=== PATIENT | female | born 1945 | race Two or more races ===

== ENCOUNTER 2025-06-26 20:51 | Inpatient (IN) | payer MEDICARE, OTHER ==
[~2025-06-26] VITALS: Ht 162.6 cm; Wt 48.0 kg
[2025-06-26] MEDS: SODIUM CHLORIDE 0.9% 1,000 ML IV ONE (21:33)
[2025-06-26] MEDS: cefTRIAXone 1GM/50ML D5W 50 ML IV ONE (21:33)
--- NOTE | 2025-06-26 21:48 | ED.PDOC ---
General HPI Comments HPI: 80 year old male presents to the emergence department via EMS with a chief complaint of hematuria onset 1 week. Per EMS, patient was taken to an urgent care by granddaughter, due to patient experiencing hematuria, confusion, altered, lethargic for the past week. Patient is currently living at a boarding care facility, has been bed bound after being diagnosed with Pneumonia 2 months ago. Patient states she is currently experiencing headache and vaginal pain. No other symptoms or modifying factors present at this time. Initial Vitals BP: 177/86 HR: 71 RR: 18 O2 Sat: 91% Temp: 98.0 F Past Medical history: COPD, HTN, asthma, HLD, chronic headache Past Surgical history: Cardiac stents Social History: Denies smoking, ETOH, and drug use. Medications: Keppra, Gabapentin Allergies: NKDA WHITE: Reported history of some confusion, weakness, nonspecific lower abdominal pain. Patient denies abdominal pain but complains of a headache Sent from urgent care with diagnosed of UTI wanted to rule out kidney stones. HPI: Poor Historian. REVIEW OF SYSTEMS: CONSTITUTIONAL: Denies acute: fever, diaphoresis, chills, HEAD: Denies acute: headache, photophobia Eyes: Denies acute: Double vision, vision loss, eye pain, eye discharge. EARS: Denies acute: tinnitus, hearing loss, ear discharge, ear pain, THROAT: Denies acute: sore throat, swelling, difficulty swallowing , pain with swallowing, change in voice. NECK: Denies acute: neck pain, neck swelling, stiff neck. HEART: Denies acute : chest pain, palpitations, LUNGS: Denies acute: SOB, wheezing, cough, hemoptysis ABDOMEN: Denies acute: Nausea, Vomiting, diarrhea, melena , hematemesis, hematochezia SKIN: Denies acute: rash, redness, lesions, itchiness. EXTREMITIES: Denies acute: calf pain, numbness, tingling, weakness, denies pain in extremity. Denies acute: Low back pain. Neuro: Denies acute: focal neurological deficit, motor or sensory focal neurological deficit, tremors, seizure like activity, , dizziness, , loss of bowel or bladder function, cauda equina like symptoms. : Denies acute: dysuria, hematuria, flank pain, increase in urinary frequency. PSYCH: Denies acute: hallucination, suicidal ideation, homicidal ideation. FEMALE: Denies acute: abnormal vaginal bleeding, foul odor, unusual discharge. PHYSICAL EXAM: General: ----mild to moderate----acute distress, awake and alert. Head: normocephalic, atraumatic. Neck: supple, trachea is midline, no swelling. Throat: Normal phonation. Eyes:, no erythema, no purulent discharge, no proptosis, no icterus. Heart: regular rate, regular rhythm, no significant murmur appreciated. Lungs: no apparent respiratory distress, Able to speak in full sentences. No wheezing, no rhonchi, no crackles. No stridors Clear to auscultation bilaterally. Abdomen: non tender to palpation, non distended, soft, no guarding, no rebound, + bowel sounds. Neuro: Awake, Alert, oriented to name, self, situation, follows commands. Possible history of dementia, resting tremors Speech is normal. Skin: no petechia, no purpura, no cyanosis, non-pale, not jaundice. Lower extremities: --no - Pitting edema no deformity, no focal swelling, no calf TTP. Makes eye contact. Face: no apparent facial droop. ED COURSE: DISCLAIMER: This medical document was created using an electronic medical record system with voice recognition software and computerized dictation system. Although this document has been carefully reviewed, there might still be some phonetic and typographical errors. Occasional wrong-word or "sound-alike" substitutions may have occurred due to the inherent limitations of voice recognition software. These areas are purely typographical due to imperfections of the software programs and do not reflect any compromise in the patient's medical care. Please read the chart carefully and recognize, using context, where these substitutions have occurred. Chief Complaint: Urinary Time Seen by MD: 21:25 Reviewed notes: Medications, Allergies Allergies: Coded Allergies: JASKARAN Inhibitors (Verified Allergy, Unknown, 06/26/25) Information Source: Patient, Emergency Med Personnel Mode of Arrival: EMS Severity: Moderate Timing: Weeks Duration: Since onset Prehospital treatment: None Onset: Spontaneous Symptoms: Hematuria History of: None Location: Other associated signs and symptoms: Hematuria Past Medical History PAST MEDICAL HISTORY: Asthma, COPD, HTN Surgical History: [employer] ELEVATOR SERVICE TECHNICIAN History: No Pertinent ELEVATOR SERVICE TECHNICIAN History Family History Family History: Reviewed,noncontributory to illness, No family hx of Cancer, No family hx of DM, No family hx of Heart abhi, No family hx of HTN, No family hx ofKidney abhi, No family hx of Liver abhi, No family hx of Lung abhi, No family hx of Stroke Social History Smoker: Non-Smoker Alcohol: Denies ETOH Use Drugs: Denies Drug Use Lives In: Home Was a procedure done? Was a procedure done?: No X-Ray, Labs, Meds, VS Vital Signs Date Time Temp Pulse Resp B/P (MAP) Pulse Ox O2 Delivery O2 Flow Rate FiO2 06/27/25 01:30 72 13 138/90 (106) 95 06/27/25 00:00 73 06/26/25 21:30 97.8 73 13 172/98 (122) 93 97.8 06/26/25 21:30 Nasal Cannula* 3 32 06/26/25 21:00 98.0 71 18 177/86 91 98.0 Lab Test 06/27/25 00:18 06/26/25 23:30 06/26/25 22:17 06/26/25 21:33 Range/Units Troponin I High Sensitivity 4 6 6 </=34 ng/L Urine Color Colorless Yellow Urine Clarity Turbid H Clear Urine pH 8.0 5.0-9.0 Urine Specific [place] 1.013 1.001-1.035 Urine Protein Trace H Negative Urine Ketones Negative Negative Urine Blood 2+ H Negative /uL Urine Nitrite 2+ H Negative Urine Bilirubin Negative Negative Urine Urobilinogen Normal Negative mg/dL Urine Leukocyte Esterase 3+ Negative /uL Urine RBC 8 0 - 4 /hpf Urine Microscopic WBC 83 H 0-5 /HPF Urine Squamous Epithelial Cells None seen <5 /hpf Urine Triple Phosphate Crystals Few None Seen /hpf Urine Amorphous Crystals Few None Seen /hpf Urine Bacteria None seen None Seen /hpf Urine Glucose Normal Normal mg/dL White Blood Count 10.2 4.4-10.8 10^3/uL Red Blood Count 3.96 L 4.0-5.20 10^6/uL Hemoglobin 13.3 12.2-16.2 g/dL Hematocrit 38.0 36.0-46.0 % Mean Corpuscular Volume 96.1 80.0-100.0 fL Mean Corpuscular Hemoglobin 33.6 H 28.0-32.0 pg Mean Corpuscular Hemoglobin Concent 34.9 32.0-36.0 g/dL Red Cell Distribution Width 13.5 11.8-14.3 % Platelet Count 240 140-450 10^3/uL Mean Platelet Volume 8.7 6.9-10.8 fL Neutrophils (%) (Auto) 80.0 37.0-80.0 % Lymphocytes (%) (Auto) 11.2 10.0-50.0 % Monocytes (%) (Auto) 6.7 0.0-12.0 % Eosinophils (%) (Auto) 0.9 0.0-7.0 % Basophils (%) (Auto) 1.2 0.0-2.0 % Neutrophils # (Auto) 8.2 1.6-8.6 10 ^3/uL Lymphocytes # (Auto) 1.1 0.4-5.4 10 ^3/uL Monocytes # (Auto) 0.7 0-1.3 10 ^3/uL Eosinophils # (Auto) 0.1 0-0.8 10 ^3/uL Basophils # (Auto) 0.1 0-0.2 10 ^3/uL Nucleated Red Blood Cells 0.0 % Sodium Level 141 136-145 mmol/L Potassium Level 3.3 L 3.5-5.1 mmol/L Chloride Level 102 98-107 mmol/L Carbon Dioxide Level 30 20-31 mmol/L Anion Gap 9 5-15 Blood Urea Nitrogen 14 9-23 mg/dL Creatinine 0.56 0.550-1.02 mg/dL Glomerular Filtration Rate Calc 91 >90 mL/min BUN/Creatinine Ratio 25.0 H 10.0-20.0 Serum Glucose 116 H 74-106 mg/dL Lactic Acid Level 0.8 0.4-2.0 mmol/L Calcium Level 9.4 8.7-10.4 mg/dL Magnesium Level 2.0 1.6-2.6 mg/dL Total Bilirubin 0.4 0.2-1.0 mg/dL Aspartate Amino Transferase (AST) 21 13-40 U/L Alanine Aminotransferase (ALT) 15 7-40 U/L Alkaline Phosphatase 88 46-116 U/L Total Protein 7.0 5.7-8.2 g/dL Albumin 4.5 3.2-4.8 g/dL Lipase 32 12-53 U/L Current Medications Medications (Trade) Dose Ordered Sig/Jose Route Start Time Stop Time Status Last Admin Sodium Chloride 1,000 ml @ 1,000 mls/hr Q1H ONCE IV 06/26/25 21:30 06/26/25 22:29 DC 06/26/25 21:33 Ceftriaxone Sodium 50 ml @ 100 mls/hr ONCE ONCE IV 06/26/25 21:30 06/26/25 21:59 DC 06/26/25 21:33 Acetaminophen/ Hydrocodone Bitart ([place] 5/325MG Tab) 1 tab ONCE ONCE PO 06/27/25 00:15 06/27/25 00:16 DC 06/27/25 00:30 [place] [address] Ph: [phone] DIAGNOSTIC IMAGING Diagnostic Imaging Report : [id number] Signed PATIENT: MIGUEL ANGEL CRANE ACCT: [id number] UNIT: [id number] : 1945 LOC: ER ROOM / BED: / AGE / SEX: 80 / F ADM STATUS: REG ER SERVICE 19 ORDERING PHYSICIAN: JOSE LARSON DO PROCEDURE(s): HWOCT - HEAD WITHOUT CONTRAST REASON: weak, confusion, CARUSO ORDER NUMBER(s): [id number], ACCESSION NUMBER(s): [id number] CLINICAL HISTORY: weak, confusion, CARUSO TECHNIQUE: Helical scanning was performed of the head from the skull base to the vertex. Multiplanar reconstructions were performed. This exam was performed according to our departmental dose optimization program. Up-to-date CT equipment and radiation dose reduction techniques are utilized as appropriate. CTDI 59.9 DLP 1178.4 COMPARISON: None FINDINGS: There is no evidence for acute intracranial hemorrhage, acute ischemic changes, mass, mass effect, or extra-axial fluid collection. There is no hydrocephalus or midline shift. There is no effacement of the cerebral sulci and basal subarachnoid cisterns. The pearson-white matter differentiation is well maintained. There is mild brain volume loss and chronic small vessel ischemic change. There are large bilateral masses effusions. There is complete opacification of the left maxillary sinus with extension into the nasal cavity. IMPRESSION: No acute intracranial abnormality seen. Large bilateral mastoid effusions. Complete left maxillary sinus opacification with extension into the nasal cavity, raising possibility of a mucocele. ATED BY: LANDON BLAIR MD DICTATED DATE/TIME: 06/26/252158 SIGNED BY: LANDON BLAIR MD SIGNED DATE/TIME: 06/26/252158 CC: [place] [address] Ph: [phone] DIAGNOSTIC IMAGING Diagnostic Imaging Report : [id number] Signed PATIENT: MIGUEL ANGEL CRANE ACCT: [id number] UNIT: [id number] : 1945 LOC: ER ROOM / BED: / AGE / SEX: 80 / F ADM STATUS: REG ER SERVICE 19 ORDERING PHYSICIAN: JOSE LARSON DO PROCEDURE(s): CXRP - CHEST PORTABLE REASON: weak, confusion, h/o PNA ORDER NUMBER(s): [id number], ACCESSION NUMBER(s): [id number] EXAM: XY CHEST PORTABLE TECHNIQUE: Single frontal chest radiograph CLINICAL HISTORY: weak, confusion, h/o PNA COMPARISON: None Findings/Impression: Frontal chest radiograph demonstrates no acute osseous or superficial soft tissue abnormalities. Partially visualized neurostimulator. The trachea is midline. Mild cardiomegaly. Enlarged pulmonary arteries versus perihilar opacities. No pneumothorax or pleural effusions. ATED BY: NINOSKA MARTÍNEZ DO DICTATED DATE/TIME: 06/26/252153 SIGNED BY: NINOSKA MARTÍNEZ DO SIGNED DATE/TIME: 06/26/252153 CC: [place] [address] Ph: [phone] DIAGNOSTIC IMAGING Diagnostic Imaging Report : [id number] Signed PATIENT: MIGUEL ANGEL CRANE ACCT: [id number] UNIT: [id number] : 1945 LOC: ER ROOM / BED: / AGE / SEX: 80 / F ADM STATUS: REG ER SERVICE 19 ORDERING PHYSICIAN: JOSE LARSON DO PROCEDURE(s): ABPL - CT AB PEL WO CON-NO ORAL OR IV REASON: abd pain ORDER NUMBER(s): [id number], ACCESSION NUMBER(s): [id number] Exam: CT CT AB PEL WO CON-NO ORAL OR IV History: abd pain Comparison Study: None TECHNIQUE: Multidetector CT of the abdomen AND PELVIS without IV contrast. Axial, coronal and sagittal multiplanar reformats were obtained from the axial data set by the technologist. Radiation Dose Information: CT Dose: CTDI volume is 5.37 mGy. Dose-length product is 277.26 mGy*cm FINDINGS: Small right with trace left-sided pleural effusions and associated atelectasis. Moderate emphysematous changes of the lung bases. Heart size is within normal limits. Liver, spleen, pancreas and adrenal glands unremarkable. Sludge within the gallbladder. Otherwise, Normally distended gallbladder is unremarkable. Kidneys, and ureters are unremarkable. 0.8 x 1.4 cm hypodensity of the right posterior urinary bladder. Mild wall thickening of the mildly distended urinary bladder. Uterus and adnexa unremarkable. Stomach is unremarkable. Small bowel loops are unremarkable. Appendix is unremarkable. Large amount of fecal material within the colon with rectal fecal impaction. Nonspecific mild presacral edema No evidence of intraperitoneal free air . Trace amount of free fluid within the pelvis. No evidence of aortic aneurysm. Heavy atherosclerotic calcification of the aorta and bilateral iliacs. No significant lymphadenopathy. Small fat containing left inguinal hernia. Moderate size fat containing right i nguinal hernia containing short segmental small-bowel within the proximal portion without evidence of obstruction or strangulation. Spinal stimulator wires partially visualized with the generator overlying the left lower abdominal quadrant. No evidence of acute osseous abnormalities. IMPRESSION: Constipation with rectal fecal impaction. Trace amount of free fluid within the pelvis which may be associated with the constipation. 0.8 x 1.4 cm density of the right po ultrasound is recommended for further evaluation. sterior urinary bladder which may represent debris with a lesion not excluded. Minimal wall thickening of the urinary bladder which may be due to inadequate distention. Correlation urinalysis is recommended to exclude cystitis. ATED BY: MARIE ARMSTRONG DO DICTATED DATE/TIME: 06/26/252201 SIGNED BY: MARIE ARMSTRONG DO SIGNED DATE/TIME: 06/26/252201 CC: Time of 1ST Reevaluation: 21:55 Reevaluation 1ST: Unchanged Patient Education/Counseling: Diagnosis, Treatment Family Education/Counseling: No Family Present Departure 1 Departure Time of Disposition: 02:01 Impression: Primary Impression: Altered mental status Additional Impressions: UTI (urinary tract infection) Constipation Chronic headache Disposition: ADMITTED INPATIENT Admit to: Tele Condition: Guarded Additional Instructions: [place] [address] Ph: [phone] DIAGNOSTIC IMAGING Diagnostic Imaging Report : [id number] Signed PATIENT: MIGUEL ANGEL CRANE ACCT: [id number] UNIT: [id number] : 1945 LOC: ER ROOM / BED: / AGE / SEX: 80 / F ADM STATUS: REG ER SERVICE 19 ORDERING PHYSICIAN: JOSE LARSON DO PROCEDURE(s): HWOCT - HEAD WITHOUT CONTRAST REASON: weak, confusion, CARUSO ORDER NUMBER(s): [id number], ACCESSION NUMBER(s): [id number] CLINICAL HISTORY: weak, confusion, CARUSO TECHNIQUE: Helical scanning was performed of the head from the skull base to the vertex. Multiplanar reconstructions were performed. This exam was performed according to our departmental dose optimization program. Up-to-date CT equipment and radiation dose reduction techniques are utilized as appropriate. CTDI 59.9 DLP 1178.4 COMPARISON: None FINDINGS: There is no evidence for acute intracranial hemorrhage, acute ischemic changes, mass, mass effect, or extra-axial fluid collection. There is no hydrocephalus or midline shift. There is no effacement of the cerebral sulci and basal subarachnoid cisterns. The pearsno-white matter differentiation is well maintained. There is mild brain volume loss and chronic small vessel ischemic change. There are large bilateral masses effusions. There is complete opacification of the left maxillary sinus with extension into the nasal cavity. IMPRESSION: No acute intracranial abnormality seen. Large bilateral mastoid effusions. Complete left maxillary sinus opacification with extension into the nasal cavity, raising possibility of a mucocele. ATED BY: LANDON BLAIR MD DICTATED DATE/TIME: 06/26/252158 SIGNED BY: LANDON BLAIR MD SIGNED DATE/TIME: 06/26/252158 CC: [address] [address] Ph: [phone] DIAGNOSTIC IMAGING Diagnostic Imaging Report : [id number] Signed PATIENT: MIGUEL ANGEL CRANE ACCT: [id number] UNIT: [id number] : 1945 LOC: ER ROOM / BED: / AGE / SEX: 80 / F ADM STATUS: REG ER SERVICE 19 ORDERING PHYSICIAN: JOSE LARSON DO PROCEDURE(s): CXRP - CHEST PORTABLE REASON: weak, confusion, h/o PNA ORDER NUMBER(s): [id number], ACCESSION NUMBER(s): [id number] EXAM: XY CHEST PORTABLE TECHNIQUE: Single frontal chest radiograph CLINICAL HISTORY: weak, confusion, h/o PNA COMPARISON: None Findings/Impression: Frontal chest radiograph demonstrates no acute osseous or superficial soft tissue abnormalities. Partially visualized neurostimulator. The trachea is midline. Mild cardiomegaly. Enlarged pulmonary arteries versus perihilar opacities. No pneumothorax or pleural effusions. ATED BY: NINOSKA MARTÍNEZ DO DICTATED DATE/TIME: 06/26/252153 SIGNED BY: NINOSKA MARTÍNEZ DO SIGNED DATE/TIME: 06/26/252153 CC: [address] [address] Ph: [phone] DIAGNOSTIC IMAGING Diagnostic Imaging Report : [id number] Signed PATIENT: MIGUEL ANGEL CRANE ACCT: [id number] UNIT: [id number] : 1945 LOC: ER ROOM / BED: / AGE / SEX: 80 / F ADM STATUS: REG ER SERVICE 19 ORDERING PHYSICIAN: JOSE LARSON DO PROCEDURE(s): ABPL - CT AB PEL WO CON-NO ORAL OR IV REASON: abd pain ORDER NUMBER(s): [id number], ACCESSION NUMBER(s): [id number] Exam: CT CT AB PEL WO CON-NO ORAL OR IV History: abd pain Comparison Study: None TECHNIQUE: Multidetector CT of the abdomen AND PELVIS without IV contrast. Axial, coronal and sagittal multiplanar reformats were obtained from the axial data set by the technologist. Radiation Dose Information: CT Dose: CTDI volume is 5.37 mGy. Dose-length product is 277.26 mGy*cm FINDINGS: Small right with trace left-sided pleural effusions and associated atelectasis. Moderate emphysematous changes of the lung bases. Heart size is within normal limits. Liver, spleen, pancreas and adrenal glands unremarkable. Sludge within the gallbladder. Otherwise, Normally distended gallbladder is unremarkable. Kidneys, and ureters are unremarkable. 0.8 x 1.4 cm hypodensity of the right posterior urinary bladder. Mild wall thickening of the mildly distended urinary bladder. Uterus and adnexa unremarkable. Stomach is unremarkable. Small bowel loops are unremarkable. Appendix is unremarkable. Large amount of fecal material within the colon with rectal fecal impaction. Nonspecific mild presacral edema No evidence of intraperitoneal free air . Trace amount of free fluid within the pelvis. No evidence of aortic aneurysm. Heavy atherosclerotic calcification of the aorta and bilateral iliacs. No significant lymphadenopathy. Small fat containing left inguinal hernia. Moderate size fat containing right inguinal hernia containing short segmental small-bowel within the proximal portion without evidence of obstruction or strangulation. Spinal stimulator wires partially visualized with the generator overlying the left lower abdominal quadrant. No evidence of acute osseous abnormalities. IMPRESSION: Constipation with rectal fecal impaction. Trace amount of free fluid within the pelvis which may be associated with the constipation. 0.8 x 1.4 cm density of the right po ultrasound is recommended for further evaluation. sterior urinary bladder which may represent debris with a lesion not excluded. Minimal wall thickening of the urinary bladder which may be due to inadequate distention. Correlation urinalysis is recommended to exclude cystitis. ATED BY: MARIE ARMSTRONG DO DICTATED DATE/TIME: 06/26/252201 SIGNED BY: MARIE ARMSTRONG DO SIGNED DATE/TIME: 06/26/252201 Discharged With: Self Critical Care Note Critical Care Time?: No I personally scribed for JO[facility]SON DO ([facility] on 06/26/25 at 21:48. Electronically submitted by Brianne Sharma ([email or web address]). I personally scribed for JOSE LARSON DO ([facility] on 06/26/25 at 22:18. Electronically submitted by Brianne Sharma ([email or web address]). I personally scribed for JOSE LARSON DO ([facility]) on 06/26/25 at 23:08. Electronically submitted by Brianne Sharma ([email or web address]). JOSE LARSON DO Jun 26, 2025 21:48
--- NOTE | 2025-06-26 21:57 | DVH ---
EXAM: XY CHEST PORTABLE TECHNIQUE: Single frontal chest radiograph CLINICAL HISTORY: weak, confusion, h/o PNA COMPARISON: None Findings/Impression: Frontal chest radiograph demonstrates no acute osseous or superficial soft tissue abnormalities. Part ially visualized neurostimulator. The trachea is midline. Mild cardiomegaly. Enlarged pulmonary arteries versus perihilar opacities. No pneumothorax or pleural effusions.
[2025-06-26 21:59] LABS: Hematocrit 38.0 % (36.0-46.0); Hemoglobin 13.3 g/dL (12.2-16.2); Mean Corpuscular Hemoglobin 33.6 pg (28.0-32.0); Mean Corpuscular Volume 96.1 fL (80.0-100.0); Nucleated Red Blood Cells % 0.0 %
--- NOTE | 2025-06-26 22:02 | DVH ---
CLINICAL HISTORY: weak, confusion, CARUSO TECHNIQUE: Helical scanning was performed of the head from the skull base to the vertex. Multiplanar reconstructions were performed. This exam was performed according to our departmental dose optimizat ion program. Up-to-date CT equipment and radiation dose reduction techniques are utilized as appropri ate. CTDI 59.9 DLP 1178.4 COMPARISON: None FINDINGS: There is no evidence for acute intracranial hemorrhage, acute ischemic changes, mass, mass effect, or extra-axial fluid collection. There is no hydrocephalus or midline shift. There is no effacement of the cerebral sulci and basal subarachnoid cisterns. The pearson-white matter differentiation is well tawnya ntained. There is mild brain volume loss and chronic small vessel ischemic change. There are large bilateral masses effusions. There is complete opacification of the left maxillary sin us with extension into the nasal cavity. IMPRESSION: No acute intracranial abnormality seen. Large bilateral mastoid effusions. Complete left maxillary sinus opacification with extension into the nasal cavity, raising possibilit y of a mucocele.
--- NOTE | 2025-06-26 22:05 | DVH ---
Exam: CT CT AB PEL WO CON-NO ORAL OR IV History: abd pain Comparison Study: None TECHNIQUE: Multidetector CT of the abdomen AND PELVIS without IV contrast. Axial, coronal and sagitta l multiplanar reformats were obtained from the axial data set by the technologist. Radiation Dose Information: CT Dose: CTDI volume is 5.37 mGy. Dose-length product is 277.26 mGy*cm FINDINGS: Small right with trace left-sided pleural effusions and associated atelectasis. Moderate emphysematou s changes of the lung bases. Heart size is within normal limits. Liver, spleen, pancreas and adrenal glands unremarkable. Sludge within the gallbladder. Otherwise, N ormally distended gallbladder is unremarkable. Kidneys, and ureters are unremarkable. 0.8 x 1.4 cm hypodensity of the right posterior urinary bladde r. Mild wall thickening of the mildly distended urinary bladder. Uterus and adnexa unremarkable. Stomach is unremarkable. Small bowel loops are unremarkable. Appendix is unremarkable. Large amount of fecal material within the colon with rectal fecal impaction. Nonspecific mild presacral edema No evidence of intraperitoneal free air . Trace amount of free fluid within the pelvis. No evidence of aortic aneurysm. Heavy atherosclerotic calcification of the aorta and bilateral iliacs . No significant lymphadenopathy. Small fat containing left inguinal hernia. Moderate size fat containing right inguinal hernia contain ing short segmental small-bowel within the proximal portion without evidence of obstruction or nory ulation. Spinal stimulator wires partially visualized with the generator overlying the left lower abdominal qu adrant. No evidence of acute osseous abnormalities. IMPRESSION: Constipation with rectal fecal impaction. Trace amount of free fluid within the pelvis which may be associated with the constipation. 0.8 x 1.4 cm density of the right po ultrasound is recommended for further evaluation. sterior urinar y bladder which may represent debris with a lesion not excluded. Minimal wall thickening of the urinary bladder which may be due to inadequate distention. Correlatio n urinalysis is recommended to exclude cystitis.
[2025-06-26 22:10] LABS: Alanine Aminotransferase 15 U/L (7-40); Albumin 4.5 g/dL (3.2-4.8); Alkaline Phosphatase 88 U/L (46-116); Anion Gap 9 (5-15); BUN/Creatinine Ratio 25.0 (10.0-20.0); Blood Urea Nitrogen 14 mg/dL (9-23); Calcium 9.4 mg/dL (8.7-10.4); Carbon Dioxide 30 mmol/L (20-31); Chloride 102 mmol/L (98-107); Lipase 32 U/L (12-53); Magnesium 2.0 mg/dL (1.6-2.6); Sodium 141 mmol/L (136-145); Total Protein 7.0 g/dL (5.7-8.2)
[2025-06-26 22:11] LABS: Bilirubin, Total 0.4 mg/dL (0.2-1.0); Glucose 116 mg/dL (74-106); Potassium 3.3 mmol/L (3.5-5.1)
[2025-06-27] MEDS: ACETAMINOPHEN 325 MG TAB PO ONE (00:02)
[2025-06-27 00:06] LABS: Urine Amorphous Crystal FEW /hpf (None Seen); Urine Protein, UAD TRACE (Negative)
[2025-06-27] MEDS: HYDROcodone-ACET 5/325MG TAB PO ONE (00:30)
[2025-06-27] MEDS ORDERED: ACETAMINOPHEN 325 MG TAB PO PRN (03:30)
--- NOTE | 2025-06-27 03:42 | DVHHP2 ---
History of Present Illness Reason for Visit: Altered mental status History of Present Illness 80-year-old female presents for evaluation of altered mental status. Patient currently living at a [facility] where she was noted to be progressively more confused and weak over the past three days. She has also been experiencing some hematuria. No abdominal pain, nausea or vomiting. Past Medical History Asthma, dyslipidemia, hypertension, COPD Past Surgical History PTCA Family History Noncontributory Smoke: No ALCOHOL: none Drugs: None Lives: with Family Review of Systems Review of Systems Review of systems are currently negative otherwise addressed in HPI. Allergies: Coded Allergies: JASKARAN Inhibitors (Verified Allergy, Unknown, 06/26/25) Medications Current Medications Medications Dose Ordered Sig/Jose Route Start Time Stop Time Status Last Admin Dose Admin Gabapentin 300 mg BID PO 06/27/25 10:00 Losartan Potassium 75 mg DAILY PO 06/27/25 10:00 Levetiracetam 500 mg BID PO 06/27/25 10:00 UNV Atorvastatin Calcium 20 mg HS PO 06/27/25 22:00 Ceftriaxone Sodium 50 ml @ 100 mls/hr DAILY@2200 IV 06/27/25 22:00 UNV Clonidine HCl 0.1 mg Q6HP PRN PO 06/27/25 03:30 UNV Acetaminophen/ Hydrocodone Bitart 1 tab Q4HP PRN PO 06/27/25 03:30 UNV Ondansetron HCl 4 mg Q4HP PRN IV 06/27/25 03:30 UNV Enoxaparin Sodium 40 mg DAILY SC 06/27/25 10:00 UNV Acetaminophen 650 mg Q6HP PRN PO 06/27/25 03:30 UNV Exam Vital Signs Vital Signs Date Time Temp Pulse Resp B/P (MAP) Pulse Ox O2 Delivery O2 Flow Rate FiO2 06/27/25 01:30 72 13 138/90 (106) 95 06/26/25 21:30 97.8 97.8 06/26/25 21:30 Nasal Cannula* 3 32 Exam Gen: 80-year-old female in mild distress Skin: Warm, dry, normal color and texture, no rash. HEENT: Normocephalic atraumatic, mucous membranes moist and pink. Neck: Cervical and supraclavicular nodes normal without enlargement, trachea is midline, thyroid gland is normal without masses. Pulmonary: Clear to auscultation and percussion bilaterally. Cardiac: Regular rate and rhythm. No murmur Abdomen: Soft, nontender, nondistended, bowel sounds present all 4 quadrants, no guarding, no rigidity, no organomegaly. Extremities: No cyanosis, clubbing, no edema Neuro: Cranial nerves II through XII grossly intact, normal affect and speech, no focal motor deficits. Labs/Xrays ORDERING PHYSICIAN: JOSE LARSON DO PROCEDURE(s): ABPL - CT AB PEL WO CON-NO ORAL OR IV REASON: abd pain ORDER NUMBER(s): [id number], ACCESSION NUMBER(s): [id number] Exam: CT CT AB PEL WO CON-NO ORAL OR IV History: abd pain Comparison Study: None TECHNIQUE: Multidetector CT of the abdomen AND PELVIS without IV contrast. Axial, coronal and sagittal multiplanar reformats were obtained from the axial data set by the technologist. Radiation Dose Information: CT Dose: CTDI volume is 5.37 mGy. Dose-length product is 277.26 mGy*cm FINDINGS: Small right with trace left-sided pleural effusions and associated atelectasis. Moderate emphysematous changes of the lung bases. Heart size is within normal limits. Liver, spleen, pancreas and adrenal glands unremarkable. Sludge within the gallbladder. Otherwise, Normally distended gallbladder is unremarkable. Kidneys, and ureters are unremarkable. 0.8 x 1.4 cm hypodensity of the right posterior urinary bladder. Mild wall thickening of the mildly distended urinary bladder. Uterus and adnexa unremarkable. Stomach is unremarkable. Small bowel loops are unremarkable. Appendix is unremarkable. Large amount of fecal material within the colon with rectal fecal impaction. Nonspecific mild presacral edema No evidence of intraperitoneal free air . Trace amount of free fluid within the pelvis. No evidence of aortic aneurysm. Heavy atherosclerotic calcification of the aorta and bilateral iliacs. No significant lymphadenopathy. Small fat containing left inguinal hernia. Moderate size fat containing right inguinal hernia containing short segmental small-bowel within the proximal portion without evidence of obstruction or strangulation. Spinal stimulator wires partially visualized with the generator overlying the left lower abdominal quadrant. No evidence of acute osseous abnormalities. IMPRESSION: Constipation with rectal fecal impaction. Trace amount of free fluid within the pelvis which may be associated with the constipation. 0.8 x 1.4 cm density of the right po ultrasound is recommended for further evaluation. sterior urinary bladder which may represent debris with a lesion not excluded. Minimal wall thickening of the urinary bladder which may be due to inadequate distention. Correlation urinalysis is recommended to exclude cystitis. Labs Test 06/27/25 00:18 06/26/25 23:30 06/26/25 21:33 Range/Units Troponin I High Sensitivity 4 </=34 ng/L Urine Color Colorless Yellow Urine Clarity Turbid H Clear Urine pH 8.0 5.0-9.0 Urine Specific [place] 1.013 1.001-1.035 Urine Protein Trace H Negative Urine Ketones Negative Negative Urine Blood 2+ H Negative /uL Urine Nitrite 2+ H Negative Urine Bilirubin Negative Negative Urine Urobilinogen Normal Negative mg/dL Urine Leukocyte Esterase 3+ Negative /uL Urine RBC 8 0 - 4 /hpf Urine Microscopic WBC 83 H 0-5 /HPF Urine Squamous Epithelial Cells None seen <5 /hpf Urine Triple Phosphate Crystals Few None Seen /hpf Urine Amorphous Crystals Few None Seen /hpf Urine Bacteria None seen None Seen /hpf Urine Glucose Normal Normal mg/dL White Blood Count 10.2 4.4-10.8 10^3/uL Red Blood Count 3.96 L 4.0-5.20 10^6/uL Hemoglobin 13.3 12.2-16.2 g/dL Hematocrit 38.0 36.0-46.0 % Mean Corpuscular Volume 96.1 80.0-100.0 fL Mean Corpuscular Hemoglobin 33.6 H 28.0-32.0 pg Mean Corpuscular Hemoglobin Concent 34.9 32.0-36.0 g/dL Red Cell Distribution Width 13.5 11.8-14.3 % Platelet Count 240 140-450 10^3/uL Mean Platelet Volume 8.7 6.9-10.8 fL Neutrophils (%) (Auto) 80.0 37.0-80.0 % Lymphocytes (%) (Auto) 11.2 10.0-50.0 % Monocytes (%) (Auto) 6.7 0.0-12.0 % Eosinophils (%) (Auto) 0.9 0.0-7.0 % Basophils (%) (Auto) 1.2 0.0-2.0 % Neutrophils # (Auto) 8.2 1.6-8.6 10 ^3/uL Lymphocytes # (Auto) 1.1 0.4-5.4 10 ^3/uL Monocytes # (Auto) 0.7 0-1.3 10 ^3/uL Eosinophils # (Auto) 0.1 0-0.8 10 ^3/uL Basophils # (Auto) 0.1 0-0.2 10 ^3/uL Nucleated Red Blood Cells 0.0 % Sodium Level 141 136-145 mmol/L Potassium Level 3.3 L 3.5-5.1 mmol/L Chloride Level 102 98-107 mmol/L Carbon Dioxide Level 30 20-31 mmol/L Anion Gap 9 5-15 Blood Urea Nitrogen 14 9-23 mg/dL Creatinine 0.56 0.550-1.02 mg/dL Glomerular Filtration Rate Calc 91 >90 mL/min BUN/Creatinine Ratio 25.0 H 10.0-20.0 Serum Glucose 116 H 74-106 mg/dL Lactic Acid Level 0.8 0.4-2.0 mmol/L Calcium Level 9.4 8.7-10.4 mg/dL Magnesium Level 2.0 1.6-2.6 mg/dL Total Bilirubin 0.4 0.2-1.0 mg/dL Aspartate Amino Transferase (AST) 21 13-40 U/L Alanine Aminotransferase (ALT) 15 7-40 U/L Alkaline Phosphatase 88 46-116 U/L Total Protein 7.0 5.7-8.2 g/dL Albumin 4.5 3.2-4.8 g/dL Lipase 32 12-53 U/L SEPSIS Sepsis Screen Date sepsis recognized/suspect: Jun 26, 2025 Time Sepsis recognized/suspect: 2129 Recent Procedure: No On Antibiotic Therapy: No Respiratory Rate >20: No Heart Rate >90: No Temp<36 C (96.8 F) or >38.3 C: No SBP <90 or MAP <65 mmHG: No New Acute Mental Status Change: No Is the patient on CPAP, BIPAP,: No Physician Orders Primary Health Organisation Manager (06/26/25 ) Chest Portable (06/26/25 21:20) Electrocardigram (06/26/25 21:20) Blood Culture (06/26/25 21:20) Urine Bacterial Culture (06/26/25 21:20) Head Without Contrast (06/26/25 21:20) Ct Ab Pel Wo Con-No Oral Or Iv (06/26/25 21:20) Gabapentin Capsule (Neurontin Capsule) (06/27/25 10:00) Losartan Tablet (Cozaar Tablet) (06/27/25 10:00) Levetiracetam Tablet (Keppra Tablet) (06/27/25 10:00) Atorvastatin (Lipitor) (06/27/25 22:00) Ceftriaxone 1gm/50ml D5w (Rocephin) (06/27/25 22:00) Clonidine Hcl Tablet (Catapres Tablet) (06/27/25 03:30) Admit (06/27/25 03:20) Hydrocodone-Acet 5/325mg Tab ([place] 5/32 (06/27/25 03:30) Ondansetron Hcl (Zofran) (06/27/25 03:30) Enoxaparin Sodium (Lovenox) (06/27/25 10:00) Complete Blood Count (06/28/25 04:00) Cardiac Diet-2gna,Lofat,Lochol (06/27/25 Breakfast) Condition: Stable (06/27/25 03:20) Acetaminophen Tablet (Tylenol Tablet) (06/27/25 03:30) Bedrest With Bathroom Privileg (06/27/25 03:20) Vital Signs Date Time Temp Pulse Resp B/P (MAP) Pulse Ox O2 Delivery O2 Flow Rate FiO2 06/27/25 01:30 72 13 138/90 (106) 95 06/27/25 00:00 73 06/26/25 21:30 97.8 73 13 172/98 (122) 93 97.8 06/26/25 21:30 Nasal Cannula* 3 32 06/26/25 21:00 98.0 71 18 177/86 91 98.0 Laboratory Tests Test 06/26/25 21:33 Lactic Acid Level 0.8 mmol/L (0.4-2.0) White Blood Count 10.2 10^3/uL (4.4-10.8) Medications Medications Dose Ordered Sig/Jose Route Start Time Stop Time Status Last Admin Dose Admin Acetaminophen/ Hydrocodone Bitart 1 tab ONCE ONCE PO 06/27/25 00:15 06/27/25 00:16 DC 06/27/25 00:30 1 TAB Ceftriaxone Sodium 50 ml @ 100 mls/hr ONCE ONCE IV 06/26/25 21:30 06/26/25 21:59 DC 06/26/25 21:33 100 MLS/HR Sodium Chloride 1,000 ml @ 1,000 mls/hr Q1H ONCE IV 06/26/25 21:30 06/26/25 22:29 DC 06/26/25 21:33 1,000 MLS/HR Assessment/Plan Assessment/Plan Assessment Acute cystitis Metabolic encephalopathy Accelerated hypertension Plan Admit the patient to [facility] to the hospitalist Shaina Urine bacterial culture pending Resume home medications Continue treatment per orders. Plan discussed with: Other My Orders Orders - PANTERA PRASAD Procedure Category Date Status Time Gabapentin Capsule PHA 06/27/25 In Process (Neurontin Capsule) 10:00 Losartan Tablet PHA 06/27/25 In Process (Cozaar Tablet) 10:00 Levetiracetam Tablet PHA 06/27/25 Logged (Keppra Tablet) 10:00 Atorvastatin (Lipitor) PHA 06/27/25 In Process 22:00 Ceftriaxone 1gm/50ml PHA 06/27/25 Logged D5w (Rocephin) 22:00 Clonidine Hcl Tablet PHA 06/27/25 Logged (Catapres Tablet) 03:30 Admit ADMIT 06/27/25 Transmitted 03:20 Hydrocodone-Acet PHA 06/27/25 Logged 5/325mg Tab ([place] 03:30 Ondansetron Hcl PHA 06/27/25 Logged (Zofran) 03:30 Enoxaparin Sodium PHA 06/27/25 Logged (Lovenox) 10:00 Complete Blood Count LAB 06/28/25 Verified 04:00 Cardiac DIET 06/27/25 Transmitted Diet-2gna,Lofat,Lochol Breakfast Condition: Stable JARROD 06/27/25 In Process 03:20 Acetaminophen Tablet PHA 06/27/25 Logged (Tylenol Tablet) 03:30 Bedrest With Bathroom JARROD 06/27/25 In Process Privileg 03:20 Date of Service: Jun 27, 2025 Billing Provider: PANTERA PRASAD Common Visit Codes: [id number] INP/OBS CARE (HIGH) PANTERA PRASAD Jun 27, 2025 03:42
[2025-06-27] MEDS: VANCOMYCIN PER PHARMACY 0 MG IV STA (03:43)
[2025-06-27] MEDS ORDERED: VANCOMYCIN 1.5GM/250ML IV ONE (04:15)
[2025-06-27] MEDS: VANCOMYCIN 1GM/250ML KIT 250 ML IV ONE (04:30)
[2025-06-27 04:31] VITALS: PULSE 72; RESP 14; O2SAT 94
[2025-06-27] MEDS: HYDROcodone-ACET 5/325MG TAB PO PRN (05:37)
[2025-06-27] MEDS: ONDANSETRON HCL 4 MG/2 ML VIAL IV PRN (05:37)
[2025-06-27 09:17] LABS: Hematocrit 40.0 % (36.0-46.0); Hemoglobin 13.4 g/dL (12.2-16.2); Mean Corpuscular Hemoglobin 31.8 pg (28.0-32.0); Mean Corpuscular Volume 94.8 fL (80.0-100.0); Nucleated Red Blood Cells % 0.1 %
[2025-06-27] MEDS: POLYETHYLENE GLYCOL 17 GM PWDR PO SCH (10:00)
[2025-06-27] MEDS ORDERED: VANCOMYCIN PER PHARMACY 0 MG IV SCH (10:00)
[2025-06-27] MEDS: DOCUSATE SOD 100 MG CAP PO SCH (10:00)
[2025-06-27] MEDS: POTASSIUM EFFERVESENT TAB 25 MEQ PO ONE (10:10)
[2025-06-27] MEDS: levETIRAcetam 500 MG TAB PO SCH (10:11)
[2025-06-27] MEDS: ENOXAPARIN SOD 40 MG/0.4 ML SYRINGE SC SCH (10:11)
[2025-06-27] MEDS: GABAPENTIN 300 MG CAP PO SCH (10:11)
[2025-06-27] MEDS: LOSARTAN POTASSIUM 25 MG TAB PO SCH (10:11)
[2025-06-27 14:11] VITALS: BP 108/68; PULSE 86; RESP 18; TEMP 97.6; O2SAT 96; O2SAT 98
[2025-06-27] MEDS ORDERED: SENN-58 PO (15:46)
[2025-06-27] MEDS ORDERED: ASPI-498 PO (15:46)
[2025-06-27] MEDS ORDERED: CLON0.5T3 PO (15:46)
[2025-06-27] MEDS ORDERED: PANT40TA2 PO (15:46)
[2025-06-27] MEDS ORDERED: LOSA-535 PO (15:46)
[2025-06-27] MEDS ORDERED: AMLO1TAB23 PO (15:46)
[2025-06-27] MEDS ORDERED: SERT-160 PO (15:46)
[2025-06-27] MEDS ORDERED: CARV25TA55 PO (15:46)
[2025-06-27] MEDS ORDERED: LACT10SO3 PO (15:46)
[2025-06-27 16:30] VITALS: BP 104/81; PULSE 73; RESP 14; TEMP 98.8; O2SAT 93
[2025-06-27] MEDS ORDERED: VANCOMYCIN 1.25GM/250ML 250 ML IV SCH (17:00)
[2025-06-27] MEDS ORDERED: VANCOMYCIN 1GM/250ML KIT 250 ML IV SCH (17:00)
--- NOTE | 2025-06-27 17:39 | DVHPNRES ---
Progress Note Date Seen: Jun 27, 2025 Resident Creating Document: VICENTE SILVERMAN Medical Necessity Reason Pt with a Central, PICC or Fol: Yes The following are medically ne: Swain Catheter Subjective Review of Systems This is a 80-year-old female with past medical history of athma, HTN, COPD, AK, dislipidemia, depression, CHF and seizure disorder presents with 3 days of progressive confusion and weakness; she is a poor historian, and most history was obtained from her niece Dionne, who reports symptoms of confusion, weakness, hematuria, burning with urination, and abdominal discomfort; patient denies nausea, vomiting, or localized abdominal pain. Patient is currently living at a [facility] facility where she was noted to be progressively more confused and weak over the past 3 days and has been bed bound after being diagnosed with Pneumonia 2 months ago. 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 Initial labs reveals WBC of 10.2, creatinine of 0.46. Initial urinalysis reveals turbid urine with trace protein, blood 2+, nitrite 2+, and urine microscopy showing 83 WBCs, consistent with a likely urinary tract infection. building services engineer attempted assessment but patient was unable to answer questions appropriately. Code status discussed with niece; verified as DNR. Past medical history: Athma, HTN, COPD, AK, dislipidemia, depression, CHF, seizure disorder, Pneumonia, Chronic headache Past surgical history: PTCA, Brachioplasty Smoke: No ALCOHOL: none Drugs: None Lives: with Family Allergies: Coded Allergies: JASKARAN Inhibitors (Verified Allergy, Unknown, 06/26/25) Patient seen and examined at bedside. Patient is alert and oriented to time, place person and responding to all questions. Eyes: No Pain, No Vision change, No Conjunctivae inflammation, No Eyelid inflammation, No Other, No Redness ENT: No Ear pain, No Ear discharge, No Nose pain, No Nose discharge, No Nose congestion, No Mouth pain, No Mouth swelling, No Throat pain, No Throat swelling, No Other Cardiovascular: No Chest Pain, No Palpitations, No Orthopnea, No Paroxysmal No Dyspnea, No Edema, No Lt Headedness, No Other Respiratory: No Cough, No Dry, No Shortness of breath, No SOB with exertion, No Wheezing, No Hemoptysis, No Pleuritic Pain, No Sputum, No Other Gastrointestinal: No Nausea, No Vomiting, No Abdominal Pain, No Diarrhea, No Constipation, No Melena, No Hematochezia, No Other Genitourinary: No Dysuria, No Frequency, No Incontinence, Hematuria, No Retention, No Other Musculoskeletal: No other, No neck pain, No shoulder pain, No arm pain, No back pain, No hand pain, No leg pain, No foot pain Skin: No Rash, No Lesions, No Jaundice, No Bruising, No Other Objective vital signs Vital Sign Date Time Temp Pulse Resp B/P (MAP) Pulse Ox O2 Delivery O2 Flow Rate FiO2 06/27/25 14:11 18 98 Nasal Cannula* 3 32 06/27/25 14:11 97.6 86 108/68 (81) 97.6 medications Current Medications Medications Dose Ordered Sig/Jose Route Start Time Stop Time Status Last Admin Dose Admin Gabapentin 300 mg BID PO 06/27/25 10:00 06/27/25 10:11 300 MG Losartan Potassium 75 mg DAILY PO 06/27/25 10:00 06/27/25 10:11 75 MG Levetiracetam 500 mg BID PO 06/27/25 10:00 06/27/25 10:11 500 MG Atorvastatin Calcium 20 mg HS PO 06/27/25 22:00 Ceftriaxone Sodium 50 ml @ 100 mls/hr DAILY@2200 IV 06/27/25 22:00 Clonidine HCl 0.1 mg Q6HP PRN PO 06/27/25 03:30 06/27/25 07:03 0.1 MG Acetaminophen/ Hydrocodone Bitart 1 tab Q4HP PRN PO 06/27/25 03:30 06/27/25 05:37 1 TAB Ondansetron HCl 4 mg Q4HP PRN IV 06/27/25 03:30 06/27/25 05:37 4 MG Enoxaparin Sodium 40 mg DAILY SC 06/27/25 10:00 06/27/25 10:11 40 MG Acetaminophen 650 mg Q6HP PRN PO 06/27/25 03:30 Docusate Sodium 100 mg BID PO 06/27/25 08:15 06/27/25 10:00 100 MG Polyethylene Glycol 17 gm DAILY PO 06/27/25 08:15 06/27/25 10:00 17 GM Vancomycin HCl 250 ml @ 200 mls/hr Q12H IV 06/27/25 17:00 Cancel Examination General Appearance: 80-year-old female in severe distress. lethargic. Right arm paralysis following a surgical complication Head Exam: Normal inspection Neck Exam: Normal inspection. Non-tender. Normal alignment Pulmonary/Respiratory: Chest non-tender. Clear bilateral breath sounds, no crackles, no wheezing. Cardiovascular/Chest: Regular rate and rhythm. No murmurs. No JVD. Peripheral Pulses: 2+ Radial (R). 2+ Radial (L). 2+ Pedal (R). 2+ Pedal (L) Abdominal Exam: Soft, nontender, nondistended, bowel sounds present all 4 quadrants, no guarding, no rigidity, no organomegaly. Ankle Exam: Negative ankle edema Lower extremities: Negative lower extremity edema Neuro/Mental Status: A&O x1. Coherent. Thoughts/Psych: Depression. Hallucinations. Normal thought pattern. Appropriate mood and affect. Good judgement and insight Skin Exam: Normal inspection. Normal color. Warm. Dry laboratory and microbiology Laboratory Tests 06/27/25 08:54 06/27/25 00:18 06/26/25 21:33 Test 06/26/25 21:33 Range/Units Serum Glucose 116 H 74-106 mg/dL Labs and/or images reviewed: Labs reviewed by me, Image(s) reviewed by me Problem List/Assessment/Plan Problem List/Assessment/Plan # acute Metabolic encephalopathy Head CT: No acute intracranial abnormality seen. Large bilateral mastoid effusions. Complete left maxillary sinus opacification with extension into the nasal cavity, raising possibility of a mucocele. # Acute complicated UTI # Hematuria d/t UTI/renal stone Abdomen/Pelvis CT: 0.8 x 1.4 cm density of the right po ultrasound is recommended for further evaluation. sterior urinary bladder which may represent debris with a lesion not excluded. Tylenol Ceftriaxone [place] Zofran Urine bacterial culture pending # Constipation Abdomen/Pelvis CT: Constipation with rectal fecal impaction. Trace amount of free fluid within the pelvis which may be associated with the constipation. Docusate Miralax # Seizure disorder Keppra Gabapentin # Accelerated hypertension Losartan Clonidine # Dislipidemia Atorvastatin # History of pneumonia Chest X-Ray: Frontal chest radiograph demonstrates no acute osseous or superficial soft tissue abnormalities. Partially visualized neurostimulator. The trachea is midline. Mild cardiomegaly. Enlarged pulmonary arteries versus perihilar opacities. No pneumothorax or pleural effusions. # History of athma # History of COPD # History of CHF # History of AK # History of depression DVT prophylaxis: Levonox 40mg Goals of care: Full code, discussed for >16 minutes on 06/27/25 Plan discussed with patient Plan discussed with Dr. Regan Plan discussed with: Daughter My Orders My Orders Orders - VICENTE SILVERMAN Procedure Category Date Status Time Basic Metabolic Panel LAB 06/28/25 Verified 04:00 Date of Service: Jun 27, 2025 Billing Provider: AP REGAN MD Common Visit Codes: [id number] INP/OBS CARE(HIGH) Secondary Visit Codes: [id number] CARE PLAN 30 MINUTES VICENTE SILVERMAN Jun 27, 2025 17:39 AP REGAN MD Jun 30, 2025 20:35
[2025-06-27 20:00] VITALS: PULSE 65; RESP 17; O2SAT 94
[2025-06-27 21:00] VITALS: BP 137/78; PULSE 65; RESP 17; TEMP 98; O2SAT 94
[2025-06-27] MEDS: cefTRIAXone 1GM/50ML D5W 50 ML IV SCH (22:18)
[2025-06-27] MEDS: ATORVASTATIN 20 MG TAB PO SCH (22:19)
[2025-06-27] MEDS: SERTRALINE HCL 50 MG TAB PO SCH (22:32)
[2025-06-28] VITALS (7 sets, daily range): BP systolic 0–175; BP diastolic 54–88; PULSE 64–73; RESP 16–18; TEMP 97.4–98.7; O2SAT 93–98
[2025-06-28 07:05] LABS: Hematocrit 38.0 % (36.0-46.0); Hemoglobin 13.0 g/dL (12.2-16.2); Mean Corpuscular Hemoglobin 33.0 pg (28.0-32.0); Mean Corpuscular Volume 96.2 fL (80.0-100.0); Nucleated Red Blood Cells % 0.0 %
[2025-06-28 07:10] LABS: Calcium 9.2 mg/dL (8.7-10.4); Chloride 103 mmol/L (98-107); Sodium 141 mmol/L (136-145)
[2025-06-28 07:11] LABS: Anion Gap 8 (5-15); Carbon Dioxide 30 mmol/L (20-31); Potassium 3.5 mmol/L (3.5-5.1)
[2025-06-28 07:16] LABS: BUN/Creatinine Ratio 18.9 (10.0-20.0); Blood Urea Nitrogen 10 mg/dL (9-23); Glucose 91 mg/dL (74-106)
[2025-06-28] MEDS: ASPirin-EC 81 mg tab PO SCH (08:26)
[2025-06-28] MEDS: PANTOPRAZOLE 40 MG TAB PO SCH (08:26)
--- NOTE | 2025-06-28 14:11 | DVHPNRES ---
Progress Note Date Seen: Jun 28, 2025 Resident Creating Document: VICENTE SILVERMAN Medical Necessity Reason Pt with a Central, PICC or Fol: Yes The following are medically ne: Swain Catheter Subjective Review of Systems This is a 80-year-old female with past medical history of athma, HTN, COPD, OR, dislipidemia, depression, CHF and seizure disorder presents with 3 days of progressive confusion and weakness; she is a poor historian, and most history was obtained from her niece Dionne, who reports symptoms of confusion, weakness, hematuria, burning with urination, and abdominal discomfort; patient denies nausea, vomiting, or localized abdominal pain. Patient is currently living at a [facility] where she was noted to be progressively more confused and weak over the past 3 days and has been bed bound after being diagnosed with Pneumonia 2 months ago. 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 Initial labs reveals WBC of 10.2, creatinine of 0.46. Initial urinalysis reveals turbid urine with trace protein, blood 2+, nitrite 2+, and urine microscopy showing 83 WBCs, consistent with a likely urinary tract infection. human resources services specialist attempted assessment but patient was unable to answer questions appropriately. Code status discussed with niece; verified as DNR. Patient is currently on a soft diet. Reports adherence to prescribed medications, including lactulose carvedilol amlodipine so falling and senna. Urine bacteria culture was obtained. Objective vital signs Vital Sign Date Time Temp Pulse Resp B/P (MAP) Pulse Ox O2 Delivery O2 Flow Rate FiO2 06/28/25 09:29 140/75 06/28/25 09:00 98.7 68 16 94 98.7 06/28/25 08:00 Nasal Cannula* 3 32 Total Intake and Output 06/27/25 06/27/25 06/28/25 15:00 23:00 07:00 Intake Total 150 ml Output Total 450 ml Balance -450 ml 150 ml medications Current Medications Medications Dose Ordered Sig/Jose Route Start Time Stop Time Status Last Admin Dose Admin Gabapentin 300 mg BID PO 06/27/25 10:00 06/28/25 08:26 300 MG Losartan Potassium 75 mg DAILY PO 06/27/25 10:00 06/28/25 08:28 75 MG Levetiracetam 500 mg BID PO 06/27/25 10:00 06/28/25 08:26 500 MG Atorvastatin Calcium 20 mg HS PO 06/27/25 22:00 06/27/25 22:19 20 MG Ceftriaxone Sodium 50 ml @ 100 mls/hr DAILY@2200 IV 06/27/25 22:00 06/27/25 22:18 100 MLS/HR Clonidine HCl 0.1 mg Q6HP PRN PO 06/27/25 03:30 06/28/25 08:29 0.1 MG Acetaminophen/ Hydrocodone Bitart 1 tab Q4HP PRN PO 06/27/25 03:30 06/28/25 08:28 1 TAB Ondansetron HCl 4 mg Q4HP PRN IV 06/27/25 03:30 06/27/25 05:37 4 MG Enoxaparin Sodium 40 mg DAILY SC 06/27/25 10:00 06/28/25 08:29 40 MG Acetaminophen 650 mg Q6HP PRN PO 06/27/25 03:30 Docusate Sodium 100 mg BID PO 06/27/25 08:15 06/28/25 08:30 100 MG Polyethylene Glycol 17 gm DAILY PO 06/27/25 08:15 06/28/25 08:25 17 GM Vancomycin HCl 250 ml @ 200 mls/hr Q12H IV 06/27/25 17:00 Cancel Aspirin 81 mg DAILY PO 06/28/25 10:00 06/28/25 08:26 81 MG Pantoprazole Sodium 40 mg DAILY PO 06/28/25 10:00 06/28/25 08:26 40 MG Sertraline HCl 200 mg HS PO 06/27/25 22:00 06/27/25 22:32 200 MG Sennosides 8.6 mg HS PO 06/28/25 22:00 UNV Patient Own Medication 1 tab DAILY PO 06/29/25 10:00 UNV Patient Own Medication 1 tab BID PO 06/28/25 22:00 UNV Patient Own Medication 10 gm BID PO 06/28/25 22:00 UNV Examination General Appearance: 80-year-old female in severe distress. lethargic. Right arm paralysis following a surgical complication Head Exam: Normal inspection Neck Exam: Normal inspection. Non-tender. Normal alignment Pulmonary/Respiratory: Chest non-tender. Clear bilateral breath sounds, no crackles, no wheezing. Cardiovascular/Chest: Regular rate and rhythm. No murmurs. No JVD. Peripheral Pulses: 2+ Radial (R). 2+ Radial (L). 2+ Pedal (R). 2+ Pedal (L) Abdominal Exam: Soft, nontender, nondistended, bowel sounds present all 4 quadrants, no guarding, no rigidity, no organomegaly. Ankle Exam: Negative ankle edema Lower extremities: Negative lower extremity edema Neuro/Mental Status: A&O x2. Coherent. Thoughts/Psych: Depression. Hallucinations. Normal thought pattern. Appropriate mood and affect. Good judgement and insight Skin Exam: Normal inspection. Normal color. Warm. Dry laboratory and microbiology Laboratory Tests 06/28/25 06:02 Test 06/28/25 06:02 Range/Units Serum Glucose 91 74-106 mg/dL Microbiology Date/Time Source Procedure Growth Status 06/26/25 23:30 Voided Urine Urine Culture - Preliminary Resulted 06/26/25 21:33 Blood Blood Culture - Preliminary NO GROWTH AFTER 24 HOURS OF INCUBATION. Resulted Labs and/or images reviewed: Labs reviewed by me, Image(s) reviewed by me Problem List/Assessment/Plan Problem List/Assessment/Plan # acute Metabolic encephalopathy Head CT: No acute intracranial abnormality seen. Large bilateral mastoid effusions. Complete left maxillary sinus opacification with extension into the nasal cavity, raising possibility of a mucocele. # Acute complicated UTI # Hematuria d/t UTI/renal stone Abdomen/Pelvis CT: 0.8 x 1.4 cm density of the right po ultrasound is recommended for further evaluation. sterior urinary bladder which may represent debris with a lesion not excluded. Tylenol Ceftriaxone [place] Zofran Urine bacterial culture pending # Constipation Abdomen/Pelvis CT: Constipation with rectal fecal impaction. Trace amount of free fluid within the pelvis which may be associated with the constipation. Docusate Miralax # Seizure disorder Keppra Gabapentin # Accelerated hypertension Losartan Clonidine # Dislipidemia Atorvastatin # History of pneumonia Chest X-Ray: Frontal chest radiograph demonstrates no acute osseous or superficial soft tissue abnormalities. Partially visualized neurostimulator. The trachea is midline. Mild cardiomegaly. Enlarged pulmonary arteries versus perihilar opacities. No pneumothorax or pleural effusions. # History of athma # History of COPD # History of CHF # History of OR # History of depression DVT prophylaxis: Levonox 40mg Goals of care: Full code, discussed for >16 minutes on 06/28/25 Plan discussed with patient Plan discussed with Dr. Regan Plan discussed with: Other (RN) My Orders My Orders Orders - VICENTE SILVERMAN Procedure Category Date Status Time Code Status CODE 06/27/25 Transmitted 17:52 Pt Request For Service PT 06/28/25 Logged 07:22 Soft Diet DIET 06/28/25 Transmitted Lunch Date of Service: Jun 28, 2025 Billing Provider: AP REGAN MD Common Visit Codes: [id number] INP/OBS CARE(HIGH) VICENTE SILVERMAN Jun 28, 2025 14:11 AP REGAN MD Jun 30, 2025 20:35
--- NOTE | 2025-06-28 14:41 | DVH ---
Exam: US BLADDER History: R post bladder mass Comparison: None Date: 06/28/2025 01:10 PM Technique: Grayscale and color Doppler ultrasound of the pelvis was obtained. Pre-and postvoid images of the bladder were obtained. Findings: Prevoid bladder is well distended and unremarkable. IMPRESSION: No significant post void residual noted. Bladder wall thickening measuring 5.7 mm. 1.4 cm hypodensity seen on CT is not visualized on ultrasound. Consider cystoscopy warranted. END IMPRESSION:
[2025-06-28] MEDS: Glucerna Carbsteady SHAKE Vanilla 8oz PO SCH (18:08)
[2025-06-28] MEDS: LACTULOSE 20Gm/30ML SOLN PO SCH (21:41)
[2025-06-28] MEDS: SENNA 8.6 MG TAB PO SCH (21:44)
[2025-06-28] MEDS: CARVEDILOL 12.5 MG TAB PO SCH (21:45)
[2025-06-29] VITALS (7 sets, daily range): BP systolic 132–155; BP diastolic 74–101; PULSE 69–78; RESP 15–18; TEMP 97.5–99.4; O2SAT 94–97
[2025-06-29 07:54] LABS: Hematocrit 35.1 % (36.0-46.0); Hemoglobin 12.4 g/dL (12.2-16.2); Mean Corpuscular Hemoglobin 33.9 pg (28.0-32.0); Mean Corpuscular Volume 96.0 fL (80.0-100.0)
[2025-06-29 08:06] LABS: Anion Gap 10 (5-15); Carbon Dioxide 28 mmol/L (20-31); Chloride 103 mmol/L (98-107); Sodium 141 mmol/L (136-145)
[2025-06-29 08:07] LABS: Calcium 9.1 mg/dL (8.7-10.4)
[2025-06-29 08:10] LABS: Potassium 3.4 mmol/L (3.5-5.1)
[2025-06-29 08:12] LABS: BUN/Creatinine Ratio 17.9 (10.0-20.0); Blood Urea Nitrogen 10 mg/dL (9-23); Glucose 92 mg/dL (74-106)
[2025-06-29 09:34] LABS: Total Cells Counted 100.0 (100)
[2025-06-29] MEDS: DOCUSATE SOD 100 MG CAP PO SCH (09:37)
[2025-06-29] MEDS: POTASSIUM EFFERVESENT TAB 25 MEQ PO ONE (09:53)
[2025-06-29] MEDS ORDERED: METOCLOPRAMIDE HCL 10 MG TAB PO PRN (13:15)
--- NOTE | 2025-06-29 16:01 | DVHPNRES ---
Progress Note Date Seen: Jun 29, 2025 Resident Creating Document: VICENTE SILVERMAN Medical Necessity Reason Pt with a Central, PICC or Fol: Yes The following are medically ne: Swain Catheter Subjective Review of Systems This is a 80-year-old female with past medical history of athma, HTN, COPD, UT, dislipidemia, depression, CHF and seizure disorder presents with 3 days of progressive confusion and weakness; she is a poor historian, and most history was obtained from her niece Dionne, who reports symptoms of confusion, weakness, hematuria, burning with urination, and abdominal discomfort; patient denies nausea, vomiting, or localized abdominal pain. Patient is currently living at [facility] facility where she was noted to be progressively more confused and weak over the past 3 days and has been bed bound after being diagnosed with Pneumonia 2 months ago. 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 Initial labs reveals WBC of 10.2, creatinine of 0.46. Initial urinalysis reveals turbid urine with trace protein, blood 2+, nitrite 2+, and urine microscopy showing 83 WBCs, consistent with a likely urinary tract infection. public services librarian attempted assessment but patient was unable to answer questions appropriately. Code status discussed with niece; verified as DNR. Patient seen at bedside. Patient reports persistent nausea following administration of Zofran. Alternate antiemetic therapy was requested. Patient also declined morning physical therapy session, stating she was not feeling well, and will attempt treatment later in the day. More than 20 minutes discussion held with patient's niece, she was explained about the bladder mass and instructed to follow up with urology for cystoscopy. Objective vital signs Vital Sign Date Time Temp Pulse Resp B/P (MAP) Pulse Ox O2 Delivery O2 Flow Rate FiO2 06/29/25 10:37 76 145/74 06/29/25 08:30 99.4 15 94 99.4 06/29/25 08:00 Nasal Cannula* 3 32 Total Intake and Output 06/28/25 06/28/25 06/29/25 15:00 23:00 07:00 Intake Total 480 ml 50 ml Output Total 450 ml 425 ml Balance -450 ml 480 ml -375 ml medications Current Medications Medications Dose Ordered Sig/Jose Route Start Time Stop Time Status Last Admin Dose Admin Gabapentin 300 mg BID PO 06/27/25 10:00 06/29/25 09:38 300 MG Losartan Potassium 75 mg DAILY PO 06/27/25 10:00 06/29/25 09:39 75 MG Levetiracetam 500 mg BID PO 06/27/25 10:00 06/29/25 09:38 500 MG Atorvastatin Calcium 20 mg HS PO 06/27/25 22:00 06/28/25 21:43 20 MG Ceftriaxone Sodium 50 ml @ 100 mls/hr DAILY@2200 IV 06/27/25 22:00 06/28/25 21:41 100 MLS/HR Clonidine HCl 0.1 mg Q6HP PRN PO 06/27/25 03:30 06/28/25 08:29 0.1 MG Acetaminophen/ Hydrocodone Bitart 1 tab Q4HP PRN PO 06/27/25 03:30 06/29/25 09:38 1 TAB Ondansetron HCl 4 mg Q4HP PRN IV 06/27/25 03:30 06/29/25 09:39 4 MG Enoxaparin Sodium 40 mg DAILY SC 06/27/25 10:00 06/29/25 09:39 40 MG Acetaminophen 650 mg Q6HP PRN PO 06/27/25 03:30 Polyethylene Glycol 17 gm DAILY PO 06/27/25 08:15 06/29/25 09:39 17 GM Vancomycin HCl 250 ml @ 200 mls/hr Q12H IV 06/27/25 17:00 Cancel Aspirin 81 mg DAILY PO 06/28/25 10:00 06/29/25 09:38 81 MG Pantoprazole Sodium 40 mg DAILY PO 06/28/25 10:00 06/29/25 09:38 40 MG Sertraline HCl 200 mg HS PO 06/27/25 22:00 06/28/25 21:43 200 MG Sennosides 8.6 mg HS PO 06/28/25 22:00 06/28/25 21:44 8.6 MG Amlodipine Besylate 10 mg DAILY PO 06/29/25 10:00 06/29/25 09:53 10 MG Carvedilol 25 mg BID PO 06/28/25 22:00 06/29/25 09:37 25 MG Lactulose 10 ml BID PO 06/28/25 22:00 06/29/25 09:37 10 ML Enteral Nutritional Formula 240 ml TIDWM PO 06/28/25 18:00 06/29/25 13:30 240 ML Docusate Sodium 100 mg BID PO 06/29/25 10:00 Metoclopramide HCl 10 mg Q8HP PRN PO 06/29/25 13:15 Examination General Appearance: 80-year-old female in severe distress. lethargic. Right arm paralysis following a surgical complication Head Exam: Normal inspection Neck Exam: Normal inspection. Non-tender. Normal alignment Pulmonary/Respiratory: Chest non-tender. Clear bilateral breath sounds, no crackles, no wheezing. Cardiovascular/Chest: Regular rate and rhythm. No murmurs. No JVD. Peripheral Pulses: 2+ Radial (R). 2+ Radial (L). 2+ Pedal (R). 2+ Pedal (L) Abdominal Exam: Soft, nontender, nondistended, bowel sounds present all 4 quadrants, no guarding, no rigidity, no organomegaly. Ankle Exam: Negative ankle edema Lower extremities: Negative lower extremity edema Neuro/Mental Status: A&O x1. Coherent. Thoughts/Psych: Depression. Hallucinations. Normal thought pattern. Appropriate mood and affect. Good judgement and insight Skin Exam: Normal inspection. Normal color. Warm. Dry laboratory and microbiology Laboratory Tests 06/29/25 06:42 Test 06/29/25 06:42 Range/Units Serum Glucose 92 74-106 mg/dL Microbiology Date/Time Source Procedure Growth Status 06/26/25 23:30 Voided Urine Urine Culture - Final Complete 06/26/25 21:33 Blood Blood Culture - Preliminary NO GROWTH AFTER 48 HOURS OF INCUBATION. Resulted Labs and/or images reviewed: Labs reviewed by me, Image(s) reviewed by me Problem List/Assessment/Plan Problem List/Assessment/Plan # acute Metabolic encephalopathy Head CT: No acute intracranial abnormality seen. Large bilateral mastoid effusions. Complete left maxillary sinus opacification with extension into the nasal cavity, raising possibility of a mucocele. # Acute complicated UTI # Hematuria d/t UTI/renal stone Abdomen/Pelvis CT: 0.8 x 1.4 cm density of the right po ultrasound is recommended for further evaluation. sterior urinary bladder which may represent debris with a lesion not excluded. Bladder US: No significant post void residual noted. Bladder wall thickening measuring 5.7 mm. 1.4 cm hypodensity seen on CT is not visualized on ultrasound. Consider cystoscopy warranted. Tylenol Ceftriaxone [place] Zofran Urine bacterial culture pending # Constipation Abdomen/Pelvis CT: Constipation with rectal fecal impaction. Trace amount of free fluid within the pelvis which may be associated with the constipation. Docusate Miralax # Seizure disorder Keppra Gabapentin # Accelerated hypertension Losartan Clonidine # Dislipidemia Atorvastatin # History of pneumonia Chest X-Ray: Frontal chest radiograph demonstrates no acute osseous or superficial soft tissue abnormalities. Partially visualized neurostimulator. The trachea is midline. Mild cardiomegaly. Enlarged pulmonary arteries versus perihilar opacities. No pneumothorax or pleural effusions. # History of athma # History of COPD # History of CHF # History of UT # History of depression DVT prophylaxis: Levonox 40mg Goals of care: Full code, discussed for >16 minutes on 06/29/25 Plan discussed with patient Plan discussed with Dr. Regan Plan discussed with: Other (niece) My Orders My Orders Orders - VICENTE SILVERMAN Procedure Category Date Status Time Nutritional PHA 06/28/25 In Process Supplements (Glucerna 18:00 Complete Blood Count LAB 06/30/25 Verified 04:00 Basic Metabolic Panel LAB 06/30/25 Verified 04:00 Date of Service: Jun 29, 2025 Billing Provider: AP REGAN MD Common Visit Codes: [id number] INP/OBS CARE(HIGH) VICENTE SILVERMAN Jun 29, 2025 16:01 AP REGAN MD Jun 30, 2025 20:36
[2025-06-30] VITALS (7 sets, daily range): BP systolic 143–158; BP diastolic 77–99; PULSE 68–76; RESP 18–19; TEMP 97.8–98.2; O2SAT 94–98
[2025-06-30 07:04] LABS: Hematocrit 37.6 % (36.0-46.0); Hemoglobin 13.2 g/dL (12.2-16.2); Mean Corpuscular Hemoglobin 34.1 pg (28.0-32.0); Mean Corpuscular Volume 97.4 fL (80.0-100.0); Nucleated Red Blood Cells % 0.1 %
[2025-06-30 07:11] LABS: Chloride 103 mmol/L (98-107); Potassium 3.5 mmol/L (3.5-5.1); Sodium 141 mmol/L (136-145)
[2025-06-30 07:12] LABS: Anion Gap 8 (5-15); Calcium 9.1 mg/dL (8.7-10.4); Carbon Dioxide 30 mmol/L (20-31)
[2025-06-30 07:17] LABS: BUN/Creatinine Ratio 11.5 (10.0-20.0); Glucose 100 mg/dL (74-106)
[2025-06-30 07:18] LABS: Blood Urea Nitrogen 6 mg/dL (9-23)
--- NOTE | 2025-06-30 14:22 | DVHPNRES ---
Progress Note Date Seen: Jun 30, 2025 Resident Creating Document: KENIA FRIEDMAN RESIDENT Medical Necessity Reason Pt with a Central, PICC or Fol: Yes The following are medically ne: Swain Catheter Subjective Review of Systems This is a 80-year-old female with past medical history of athma, HTN, COPD, MS, dislipidemia, depression, CHF and seizure disorder presents with 3 days of progressive confusion and weakness; she is a poor historian, and most history was obtained from her niece Dionne, who reports symptoms of confusion, weakness, hematuria, burning with urination, and abdominal discomfort; patient denies nausea, vomiting, or localized abdominal pain. Patient is currently living at a [facility] facility where she was noted to be progressively more confused and weak over the past 3 days and has been bed bound after being diagnosed with Pneumonia 2 months ago. 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 Initial labs reveals WBC of 10.2, creatinine of 0.46. Initial urinalysis reveals turbid urine with trace protein, blood 2+, nitrite 2+, and urine microscopy showing 83 WBCs, consistent with a likely urinary tract infection. ground services instructor attempted assessment but patient was unable to answer questions appropriately. Code status discussed with niece; verified as DNR. Patient seen at bedside. Patient reports persistent nausea following administration of Zofran. Alternate antiemetic therapy was requested. Patient also declined morning physical therapy session, stating she was not feeling well, and will attempt treatment later in the day. More than 20 minutes discussion held with patient's niece, she was explained about the bladder mass and instructed to follow up with urology for cystoscopy. 06/30/2025: Patient seen at the bedside. Patient has been passing stool. MRSA nares came back positive and Bactrim was started. I spoke to the patient's niece who would like the patient to have a PT evaluation before patient goes home. Patient's niece counseled regarding SNF placement versus home health with PT for patient being unable to ambulate much. Niece verbalized understanding and would like to speak to the social well regarding SNF placements better to make an informed decision. recycle worker was informed regarding nieces concerns and stated if placement is to be done it would be done tomorrow. Order put in for SNF placement for PT. ground services instructor will counseled patient's niece tomorrow regarding it. Patient refused PT evaluation yesterday. We are encouraging her for PT evaluation today. Objective vital signs Vital Sign Date Time Temp Pulse Resp B/P (MAP) Pulse Ox O2 Delivery O2 Flow Rate FiO2 06/30/25 13:15 97.8 71 19 146/99 (115) 98 97.8 06/30/25 08:00 Nasal Cannula* 3 32 Total Intake and Output 06/29/25 06/29/25 06/30/25 15:00 23:00 07:00 Intake Total 118 ml 240 ml 145 ml Output Total 450 ml 600 ml Balance 118 ml -210 ml -455 ml medications Current Medications Medications Dose Ordered Sig/Jose Route Start Time Stop Time Status Last Admin Dose Admin Gabapentin 300 mg BID PO 06/27/25 10:00 06/30/25 08:55 300 MG Losartan Potassium 75 mg DAILY PO 06/27/25 10:00 06/30/25 08:55 75 MG Levetiracetam 500 mg BID PO 06/27/25 10:00 06/30/25 08:56 500 MG Atorvastatin Calcium 20 mg HS PO 06/27/25 22:00 06/29/25 21:40 20 MG Ceftriaxone Sodium 50 ml @ 100 mls/hr DAILY@2200 IV 06/27/25 22:00 06/29/25 21:38 100 MLS/HR Clonidine HCl 0.1 mg Q6HP PRN PO 06/27/25 03:30 06/28/25 08:29 0.1 MG Acetaminophen/ Hydrocodone Bitart 1 tab Q4HP PRN PO 06/27/25 03:30 06/30/25 08:55 1 TAB Ondansetron HCl 4 mg Q4HP PRN IV 06/27/25 03:30 06/29/25 09:39 4 MG Enoxaparin Sodium 40 mg DAILY SC 06/27/25 10:00 06/30/25 08:57 40 MG Acetaminophen 650 mg Q6HP PRN PO 06/27/25 03:30 Polyethylene Glycol 17 gm DAILY PO 06/27/25 08:15 06/29/25 09:39 17 GM Vancomycin HCl 250 ml @ 200 mls/hr Q12H IV 06/27/25 17:00 Cancel Aspirin 81 mg DAILY PO 06/28/25 10:00 06/30/25 08:56 81 MG Pantoprazole Sodium 40 mg DAILY PO 06/28/25 10:00 06/30/25 08:56 40 MG Sertraline HCl 200 mg HS PO 06/27/25 22:00 06/29/25 21:40 200 MG Sennosides 8.6 mg HS PO 06/28/25 22:00 06/28/25 21:44 8.6 MG Amlodipine Besylate 10 mg DAILY PO 06/29/25 10:00 06/30/25 08:54 10 MG Carvedilol 25 mg BID PO 06/28/25 22:00 06/30/25 08:56 25 MG Lactulose 10 ml BID PO 06/28/25 22:00 06/30/25 08:51 10 ML Enteral Nutritional Formula 240 ml TIDWM PO 06/28/25 18:00 06/30/25 11:57 240 ML Docusate Sodium 100 mg BID PO 06/29/25 10:00 06/30/25 08:53 100 MG Metoclopramide HCl 10 mg Q8HP PRN PO 06/29/25 13:15 Mupirocin 1 applic BID EACHNOSTRI 06/30/25 22:00 07/05/25 21:59 Examination General Appearance: 80-year-old female in severe distress. lethargic. Right arm paralysis following a surgical complication Head Exam: Normal inspection Neck Exam: Normal inspection. Non-tender. Normal alignment Pulmonary/Respiratory: Chest non-tender. Clear bilateral breath sounds, no crackles, no wheezing. Cardiovascular/Chest: Regular rate and rhythm. No murmurs. No JVD. Peripheral Pulses: 2+ Radial (R). 2+ Radial (L). 2+ Pedal (R). 2+ Pedal (L) Abdominal Exam: Soft, nontender, nondistended, bowel sounds present all 4 quadrants, no guarding, no rigidity, no organomegaly. Ankle Exam: Negative ankle edema Lower extremities: Negative lower extremity edema Neuro/Mental Status: A&O x1. Coherent. Thoughts/Psych: Depression. Hallucinations. Normal thought pattern. Appropriate mood and affect. Good judgement and insight Skin Exam: Normal inspection. Normal color. Warm. Dry laboratory and microbiology Laboratory Tests 06/30/25 06:00 Test 06/30/25 06:00 Range/Units Serum Glucose 100 74-106 mg/dL Microbiology Date/Time Source Procedure Growth Status 06/29/25 18:43 Nose MRSA Screen - Final Methicillin Resistant S.aureus Complete 06/26/25 23:30 Voided Urine Urine Culture - Final Complete 06/26/25 21:33 Blood Blood Culture - Preliminary NO GROWTH AFTER 72 HOURS OF INCUBATION. Resulted Labs and/or images reviewed: Labs reviewed by me, Image(s) reviewed by me Problem List/Assessment/Plan Problem List/Assessment/Plan # Acute complicated UTI # Hematuria d/t UTI/renal stone Abdomen/Pelvis CT: 0.8 x 1.4 cm density of the right po ultrasound is recommended for further evaluation. sterior urinary bladder which may represent debris with a lesion not excluded. Bladder US: No significant post void residual noted. Bladder wall thickening measuring 5.7 mm. 1.4 cm hypodensity seen on CT is not visualized on ultrasound. Consider cystoscopy warranted. Tylenol Ceftriaxone [place] Zofran Urine bacterial culture pending # Constipation Abdomen/Pelvis CT: Constipation with rectal fecal impaction. Trace amount of free fluid within the pelvis which may be associated with the constipation. Docusate Miralax # Seizure disorder Keppra Gabapentin # Accelerated hypertension Losartan Clonidine # Dislipidemia Atorvastatin # History of pneumonia Chest X-Ray: Frontal chest radiograph demonstrates no acute osseous or superficial soft tissue abnormalities. Partially visualized neurostimulator. The trachea is midline. Mild cardiomegaly. Enlarged pulmonary arteries versus perihilar opacities. No pneumothorax or pleural effusions. Nares MRSA positive, mupirocin started # History of athma # History of COPD # History of CHF # History of MS # History of depression DVT prophylaxis: Levonox 40mg Goals of care: Full code, discussed for >16 minutes on 06/29/25 Plan discussed with patient Plan discussed with Dr. Regan Plan discussed with: Patient, Other (ashley dumont) My Orders My Orders Orders - KENIA FRIEDMAN Procedure Category Date Status Time Mupirocin 2% Oint PHA 06/30/25 In Process Mrsa Nares (Bactroban 22:00 Date of Service: Jun 30, 2025 Billing Provider: AP REGAN MD Common Visit Codes: [id number] INP/OBS CARE(HIGH) KENIA FRIEDMAN Jun 30, 2025 14:22 AP REGAN MD Jun 30, 2025 20:36
[2025-06-30] MEDS: MUPIROCIN 2% OINT 15gm or 22gm FOR MRSA NARES EACHNOSTRI SCH (21:18)
[2025-07-01 01:00] VITALS: BP_SYST 111; BP_SYST 154; BP_DIAS 81; BP_DIAS 92; PULSE 75; PULSE 77; RESP 18; TEMP 97.1; TEMP 97.2; O2SAT 92; O2SAT 97
[2025-07-01 05:00] VITALS: BP 183/88; PULSE 77; RESP 18; TEMP 98; O2SAT 94
[2025-07-01 08:14] LABS: Hematocrit 38.1 % (36.0-46.0); Hemoglobin 13.3 g/dL (12.2-16.2); Mean Corpuscular Hemoglobin 33.0 pg (28.0-32.0); Mean Corpuscular Volume 94.2 fL (80.0-100.0)
[2025-07-01 08:15] LABS: Anion Gap 7 (5-15); Carbon Dioxide 31 mmol/L (20-31); Chloride 102 mmol/L (98-107); Potassium 3.7 mmol/L (3.5-5.1); Sodium 140 mmol/L (136-145)
[2025-07-01 08:17] LABS: Calcium 9.3 mg/dL (8.7-10.4)
[2025-07-01 08:21] LABS: BUN/Creatinine Ratio 14.0 (10.0-20.0)
[2025-07-01 08:26] LABS: Blood Urea Nitrogen 7 mg/dL (9-23); Glucose 108 mg/dL (74-106)
[2025-07-01 08:42] LABS: Total Cells Counted 100.0 (100)
[2025-07-01 09:00] VITALS: BP 160/82; PULSE 66; RESP 16; TEMP 98.1; O2SAT 97
[2025-07-01 13:00] VITALS: BP 147/96; PULSE 72; RESP 16; TEMP 98; O2SAT 89
--- NOTE | 2025-07-01 16:04 | DVHDSRES ---
Discharge Summary Date of Admission Resident Creating Document: MARTHA QUINTANA RESIDENT Jun 27, 2025 at 03:20 Date of Discharge: Jul 01, 2025 Admitting Diagnosis acute cystitis Labs/Diagnostic Data: Laboratory Results Test 07/01/25 07:39 06/30/25 06:00 06/27/25 20:54 06/27/25 08:54 White Blood Count 7.3 10^3/uL (4.4-10.8) Red Blood Count 4.04 10^6/uL (4.0-5.20) Hemoglobin 13.3 g/dL (12.2-16.2) Hematocrit 38.1 % (36.0-46.0) Mean Corpuscular Volume 94.2 fL (80.0-100.0) Mean Corpuscular Hemoglobin 33.0 pg (28.0-32.0) Mean Corpuscular Hemoglobin Concent 35.0 g/dL (32.0-36.0) Red Cell Distribution Width 13.7 % (11.8-14.3) Platelet Count 231 10^3/uL (140-450) Mean Platelet Volume 8.6 fL (6.9-10.8) Neutrophils (%) (Auto) % (37.0-80.0) Lymphocytes (%) (Auto) % (10.0-50.0) Monocytes (%) (Auto) % (0.0-12.0) Basophils (%) (Auto) % (0.0-2.0) Neutrophils # (Auto) 10 ^3/uL (1.6-8.6) Lymphocytes # (Auto) 10 ^3/uL (0.4-5.4) Monocytes # (Auto) 10 ^3/uL (0-1.3) Differential Total Cells Counted 100.0 (100) Neutrophils % (Manual) 74 (37.0-80.0) Band Neutrophils % (Manual) 0 Lymphocytes % (Manual) 19 (10.0-50.0) Monocytes % (Manual) 4 (0-12) Eosinophils % (Manual) 2 (0-7) Basophils % (Manual) 0 (0.0-2.0) Metamyelocytes % (manual) 1 Myelocytes % (Manual) 0 Promyelocytes % (Manual) 0 Blast Cells % (Manual) 0 Reactive Lymphocytes 0 Platelet Estimate Adequate Sodium Level 140 mmol/L (136-145) Potassium Level 3.7 mmol/L (3.5-5.1) Chloride Level 102 mmol/L (98-107) Carbon Dioxide Level 31 mmol/L (20-31) Anion Gap 7 (5-15) Blood Urea Nitrogen 7 mg/dL (9-23) Creatinine 0.50 mg/dL (0.550-1.02) Glomerular Filtration Rate Calc 94 mL/min (>90) BUN/Creatinine Ratio 14.0 (10.0-20.0) Serum Glucose 108 mg/dL (74-106) Calcium Level 9.3 mg/dL (8.7-10.4) Eosinophils (%) (Auto) 3.7 % (0.0-7.0) Eosinophils # (Auto) 0.3 10 ^3/uL (0-0.8) Basophils # (Auto) 0 10 ^3/uL (0-0.2) Nucleated Red Blood Cells 0.1 % B-Type Natriuretic Peptide 188.25 pg/mL (0-100) Hemoglobin A1c 5.0 % A1C (<5.7) Test 06/27/25 00:18 06/26/25 23:30 06/26/25 21:33 Troponin I High Sensitivity 4 ng/L (</=34) Urine Color Colorless (Yellow) Urine Clarity Turbid (Clear) Urine pH 8.0 (5.0-9.0) Urine Specific [place] 1.013 (1.001-1.035) Urine Protein Trace (Negative) Urine Ketones Negative (Negative) Urine Blood 2+ /uL (Negative) Urine Nitrite 2+ (Negative) Urine Bilirubin Negative (Negative) Urine Urobilinogen Normal mg/dL (Negative) Urine Leukocyte Esterase 3+ /uL (Negative) Urine RBC 8 /hpf (0 - 4) Urine Microscopic WBC 83 /HPF (0-5) Urine Squamous Epithelial Cells None seen /hpf (<5) Urine Triple Phosphate Crystals Few /hpf (None Seen) Urine Amorphous Crystals Few /hpf (None Seen) Urine Bacteria None seen /hpf (None Seen) Urine Glucose Normal mg/dL (Normal) Lactic Acid Level 0.8 mmol/L (0.4-2.0) Magnesium Level 2.0 mg/dL (1.6-2.6) Total Bilirubin 0.4 mg/dL (0.2-1.0) Aspartate Amino Transferase (AST) 21 U/L (13-40) Alanine Aminotransferase (ALT) 15 U/L (7-40) Alkaline Phosphatase 88 U/L (46-116) Total Protein 7.0 g/dL (5.7-8.2) Albumin 4.5 g/dL (3.2-4.8) Lipase 32 U/L (12-53) Other Laboratory Tests 07/01/25 07:39 Brief Hx & Hospital Course: This is a 80-year-old female with past medical history of athma, HTN, COPD, MO, dislipidemia, depression, CHF and seizure disorder who presented with 3 days of progressive confusion and weakness; she is a poor historian, and most history was obtained from her niece Dionne, who reported symptoms of confusion, weakness, hematuria, burning with urination, and abdominal discomfort; but denied nausea, vomiting, or localized abdominal pain. Patient is currently living at a [facility] care facility where she was noted to be progressively more confused and weak over the past 3 days and has been bed bound after being diagnosed with Pneumonia 2 months ago. On exam, she had right arm paralysis following a surgical complication. Initial labs revealed WBC of 10.2, creatinine of 0.46. Initial urinalysis revealed turbid urine with trace protein, blood 2+, nitrite 2+, and urine microscopy showing 83 WBCs, consistent with a likely urinary tract infection. Code status was discussed with niece; verified as DNR. On evaluation in the hospital, she was found to have a bladder mass and information was given to her niece and she was instructed to follow-up with urology for cystoscopy. MRSA nares came back positive and mupirocin ointment was started. Patient was recommended placement in a SNF for PT following a PT evaluation in the hospital. Patient's niece was informed about the same and was given information about SNF placement and was hit in deciding on a SNF for the patient. All other questions and concerns were addressed and the patient was discharged to [facility] and rehab. General Appearance: 80-year-old female in severe distress. lethargic. Right arm paralysis following a surgical complication Head Exam: Normal inspection Neck Exam: Normal inspection. Non-tender. Normal alignment Pulmonary/Respiratory: Chest non-tender. Clear bilateral breath sounds, no crackles, no wheezing. Cardiovascular/Chest: Regular rate and rhythm. No murmurs. No JVD. Peripheral Pulses: 2+ Radial (R). 2+ Radial (L). 2+ Pedal (R). 2+ Pedal (L) Abdominal Exam: Soft, nontender, nondistended, bowel sounds present all 4 quadrants, no guarding, no rigidity, no organomegaly. Ankle Exam: Negative ankle edema Lower extremities: Negative lower extremity edema Neuro/Mental Status: A&O x1. Coherent. Thoughts/Psych: Depression. Hallucinations. Normal thought pattern. Appropriate mood and affect. Good judgement and insight Skin Exam: Normal inspection. Normal color. Warm. Dry Operations or Procedures 1.PROCEDURE(s): ABPL - CT AB PEL WO CON-NO ORAL OR IV REASON: abd pain ORDER NUMBER(s): [id number], ACCESSION NUMBER(s): [id number] Exam: CT CT AB PEL WO CON-NO ORAL OR IV History: abd pain Comparison Study: None TECHNIQUE: Multidetector CT of the abdomen AND PELVIS without IV contrast. Axial, coronal and sagittal multiplanar reformats were obtained from the axial data set by the technologist. Radiation Dose Information: CT Dose: CTDI volume is 5.37 mGy. Dose-length product is 277.26 mGy*cm FINDINGS: Small right with trace left-sided pleural effusions and associated atelectasis. Moderate emphysematous changes of the lung bases. Heart size is within normal limits. Liver, spleen, pancreas and adrenal glands unremarkable. Sludge within the gallbladder. Otherwise, Normally distended gallbladder is unremarkable. Kidneys, and ureters are unremarkable. 0.8 x 1.4 cm hypodensity of the right posterior urinary bladder. Mild wall thickening of the mildly distended urinary bladder. Uterus and adnexa unremarkable. Stomach is unremarkable. Small bowel loops are unremarkable. Appendix is unremarkable. Large amount of fecal material within the colon with rectal fecal impaction. Nonspecific mild presacral edema No evidence of intraperitoneal free air . Trace amount of free fluid within the pelvis. No evidence of aortic aneurysm. Heavy atherosclerotic calcification of the aorta and bilateral iliacs. No significant lymphadenopathy. Small fat containing left inguinal hernia. Moderate size fat containing right inguinal hernia containing short segmental small-bowel within the proximal portion without evidence of obstruction or strangulation. Spinal stimulator wires partially visualized with the generator overlying the left lower abdominal quadrant. No evidence of acute osseous abnormalities. IMPRESSION: Constipation with rectal fecal impaction. Trace amount of free fluid within the pelvis which may be associated with the constipation. 0.8 x 1.4 cm density of the right po ultrasound is recommended for further evaluation. sterior urinary bladder which may represent debris with a lesion not excluded. Minimal wall thickening of the urinary bladder which may be due to inadequate distention. Correlation urinalysis is recommended to exclude cystitis. 2.PROCEDURE(s): CXRP - CHEST PORTABLE REASON: weak, confusion, h/o PNA ORDER NUMBER(s): [id number], ACCESSION NUMBER(s): [id number] EXAM: XY CHEST PORTABLE TECHNIQUE: Single frontal chest radiograph CLINICAL HISTORY: weak, confusion, h/o PNA COMPARISON: None Findings/Impression: Frontal chest radiograph demonstrates no acute osseous or superficial soft tissue abnormalities. Partially visualized neurostimulator. The trachea is midline. Mild cardiomegaly. Enlarged pulmonary arteries versus perihilar opacities. No pneumothorax or pleural effusions. 3.PROCEDURE(s): HWOCT - HEAD WITHOUT CONTRAST REASON: weak, confusion, CARUSO ORDER NUMBER(s): [id number], ACCESSION NUMBER(s): [id number] CLINICAL HISTORY: weak, confusion, CARUSO TECHNIQUE: Helical scanning was performed of the head from the skull base to the vertex. Multiplanar reconstructions were performed. This exam was performed according to our departmental dose optimization program. Up-to-date CT equipment and radiation dose reduction techniques are utilized as appropriate. CTDI 59.9 DLP 1178.4 COMPARISON: None FINDINGS: There is no evidence for acute intracranial hemorrhage, acute ischemic changes, mass, mass effect, or extra-axial fluid collection. There is no hydrocephalus or midline shift. There is no effacement of the cerebral sulci and basal subarachnoid cisterns. The pearson-white matter differentiation is well maintained. There is mild brain volume loss and chronic small vessel ischemic change. There are large bilateral masses effusions. There is complete opacification of the left maxillary sinus with extension into the nasal cavity. IMPRESSION: No acute intracranial abnormality seen. Large bilateral mastoid effusions. Complete left maxillary sinus opacification with extension into the nasal cavity, raising possibility of a mucocele. 4.PROCEDURE(s): BLDR - BLADDER REASON: R post bladder mass ORDER NUMBER(s): [id number], ACCESSION NUMBER(s): [id number] Exam: US BLADDER History: R post bladder mass Comparison: None Date: 06/28/2025 01:10 PM Technique: Grayscale and color Doppler ultrasound of the pelvis was obtained. Pre-and postvoid images of the bladder were obtained. Findings: Prevoid bladder is well distended and unremarkable. IMPRESSION: No significant post void residual noted. Bladder wall thickening measuring 5.7 mm. 1.4 cm hypodensity seen on CT is not visualized on ultrasound. Consider cystoscopy warranted. END IMPRESSION: Condition at Discharge: Stable Final Diagnosis/Problems List Acute complicated UTI Hematuria d/t UTI/renal stone Constipation Seizure disorder Essential hypertension,uncontrolled Dyslipidemia metabolic encephalopathy History of pneumonia Nares MRSA positive History of asthma History of COPD History of CHF History of MO History of depression Discharge Disposition: Retirement Facility Discharge Instruct/Medications Diet: Cardiac 2g Na,low cholest Activity: No Restrictions, As Tolerated Follow Up/Referral: follow up with pcp in 1-2 weeks Scheduled Amlodipine Besylate (Amlodipine Besylate), 1 TAB PO DAILY, (Reported) Aspirin (Aspirin 81), 1 TAB PO DAILY, (Reported) Carvedilol (Carvedilol), 1 TAB PO BID, (Reported) Clonazepam (KlonoPIN TABLET), 1 TAB PO HS, (Reported) Lactulose (Lactulose), 10 GM PO BID, (Reported) Losartan Potassium (Losartan Potassium), 1 TAB PO DAILY, (Reported) Pantoprazole Sodium Sesquihydr (Protonix), 40 MG PO DAILY, (Reported) Senna (Senokot), 1 TAB PO HS, (Reported) Sertraline Hcl (Sertraline Hcl), 2 TAB PO HS, (Reported) Discharge Statement: "Patient was advised to return to the ER or call 911 if any headaches, dizziness, shortness of breath, chest pain, abdominal pain, bleeding, fevers, or worsening of medical condition. Patient was counseled about treatment plan, medications, possible side effects, patientverbalized understanding. All questions were answered to the best of my ability. This discharge took greater then 30 minutes in planning, reviewing documentation, counseling the patient, and discussing with other team members." ASSESSMENT ASSESSMENT Hospital Course This is a 80-year-old female with past medical history of athma, HTN, COPD, MO, dislipidemia, depression, CHF and seizure disorder who presented with 3 days of progressive confusion and weakness; she is a poor historian, and most history was obtained from her niece Dionne, who reported symptoms of confusion, weakness, hematuria, burning with urination, and abdominal discomfort; but denied nausea, vomiting, or localized abdominal pain. Patient is currently living at a [facility] facility where she was noted to be progressively more confused and weak over the past 3 days and has been bed bound after being diagnosed with Pneumonia 2 months ago. On exam, she had right arm paralysis following a surgical complication. Initial labs revealed WBC of 10.2, creatinine of 0.46. Initial urinalysis revealed turbid urine with trace protein, blood 2+, nitrite 2+, and urine microscopy showing 83 WBCs, consistent with a likely urinary tract infection. Code status was discussed with niece; verified as DNR. On evaluation in the hospital, she was found to have a bladder mass and information was given to her niece and she was instructed to follow-up with urology for cystoscopy. MRSA nares came back positive and mupirocin ointment was started. Patient was recommended placement in a SNF for PT following a PT evaluation in the hospital. Patient's niece was informed about the same and was given information about SNF placement and was hit in deciding on a SNF for the patient. All other questions and concerns were addressed and the patient was discharged to [facility] and rehab. Assessment Acute complicated UTI Hematuria d/t UTI/renal stone Constipation Seizure disorder Essential hypertension,uncontrolled Dyslipidemia metabolic encephalopathy History of pneumonia Nares MRSA positive History of asthma History of COPD History of CHF History of MO History of depression Date of Service: Jul 01, 2025 Billing Provider: AP JIMENES MD Common Visit Codes: 56525-ZCX/OBS DISCH DAY >30min MARTHA QUINTANA RESIDENT Jul 01, 2025 16:04 AP JIMENES MD Jul 04, 2025 10:16
[2025-07-01 16:40] VITALS: BP 145/87; PULSE 70; TEMP 36.7
[2025-07-01 17:00] VITALS: BP 116/80; PULSE 85; RESP 17; TEMP 98.2; O2SAT 98
[2025-07-02] MEDS ORDERED: LOSARTAN POTASSIUM 50 MG TAB PO SCH (10:00)
== END 2025-07-01 18:25 | DRG 689 ==
LOC: ER 20:51 → EDBD 20:51 → OVERFLOW 06-27 03:20 → EAST 06-27 14:22 → WEST WING 06-30 23:51
PROVIDERS: ADMIT Internal Medicine Geriatric Medicine; ATTEND Internal Medicine Geriatric Medicine
DX: N39.0 Urinary tract infection, site not specified (principal); G93.41 Metabolic encephalopathy; G40.909 Epilepsy, unspecified, not intractable, without status epilepticus; E78.5 Hyperlipidemia, unspecified; N20.0 Calculus of kidney; J44.89 Other specified chronic obstructive pulmonary disease; J45.909 Unspecified asthma, uncomplicated; F32.A Depression, unspecified; I11.0 Hypertensive heart disease with heart failure; I50.9 Heart failure, unspecified; K56.41 Fecal impaction; Z66 Do not resuscitate; B95.62 Methicillin resistant Staphylococcus aureus infection as the cause of diseases classified elsewhere; Z95.5 Presence of coronary angioplasty implant and graft; I25.2 Old myocardial infarction
CPT/HCPCS: 36415; 70450; 71045; 74176; 76857; 80048; 80053; 81001; 82565; 83036; 83605; 83690; 83735; 83880; 84484; 85007; 85025; 85027; 87040; 87081; 87086; 96365; 97110; 97163; G0378; J2405